=== PATIENT | male | born 1980 | race Caucasian/White ===

== ENCOUNTER 2020-04-30 16:21 | Emergency (ER) | payer MEDICAID ==
[~2020-04-30] VITALS: Ht 165.1 cm; Wt 87.2 kg
[2020-04-30 16:32] VITALS: BP 146/69
--- NOTE | 2020-04-30 16:40 | NUR ---
PT PLACED IN HALLWAY BED C.
[2020-04-30] MEDS ORDERED: LIDOCAINE MPF 1% 10 MG/ML VIAL INJ ONE (16:50)
--- NOTE | 2020-04-30 16:51 | NUR ---
39 Y/O MALE FROM HOME PRESENTS WITH LACERATION TO LT THUMB. 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 PT DENIES PAIN AT THIS TIME. BLEEDING CONTROLLED. UNKNOWN LAST TETANUS. +CMS, +PULSES. SKIN WARM AND DRY. VSS MEDHX: DENIES
--- NOTE | 2020-04-30 16:53 | NUR ---
PT TO XRAY
--- NOTE | 2020-04-30 16:59 | NUR ---
LIDOCAINE AND SUTURE SETUP PLACED BEDSIDE FOR USE BY [facility]IS AC
--- NOTE | 2020-04-30 17:37 | NUR ---
[facility] AT [facility] FOR SUTURE PLACEMENT TO LT THUMB
[2020-04-30] MEDS ORDERED: IBUPROFEN 600 MG TAB PO ONE (17:45)
[2020-04-30 18:13] VITALS: BP 146/69
--- NOTE | 2020-04-30 18:14 | NUR ---
Patient discharged with v/s stable. Written and verbal after care instructions given and explained. Patient alert, oriented and verbalized understanding of instructions. Ambulatory with steady gait. All questions addressed prior to discharge. ID band removed. Patient advised to follow up with PMD. Rx of KEFLEX 500MG, BACITRACIN 500UNIT, AND IBUPROFEN 600MG AND NORCO given. Patient educated on indication of medication including possible reaction and side effects. Opportunity to ask questions provided and answered.
== END 2020-04-30 18:14 | disposition home or self-care (01) ==
LOC: MED 16:21
DX: S62.502B Fracture of unspecified phalanx of left thumb, initial encounter for open fracture (principal); W26.8XXA Contact with other sharp object(s), not elsewhere classified, initial encounter; Y93.89 Activity, other specified; Y92.89 Other specified places as the place of occurrence of the external cause; Y99.8 Other external cause status
CPT/HCPCS: 12001; 73140; 99283; J2001